=== PATIENT | female | born 1945 | race Caucasian/White ===

== ENCOUNTER → 2020-06-10 12:03 | Outpatient (CLI) | payer MEDICARE, SELFPAY ==
--- NOTE | 2020-06-10 12:09 | XR_ITS ---
PROCEDURE: XR LUMBAR SPINE MIN 4V CLINICAL INDICATION: LOW BACK PAIN After recent fall COMPARISON: CT ABDPELW/O CT ABD PELVIS W/O CONTRAST from 02/14/2016 FINDINGS: There is some straightening of the normal curvature thoracolumbar region. L1 through L5 appear intact. However there is suggestion of a very mild compression fracture inferior endplate of T12. There is no evidence of compression of T12 on the previous CT scan abdomen pelvis 02/14/2016. There is a small vacuum phenomenon of the L5-S1 disc. There is mild anterior and lateral osteophytic spurring at the L2-3 level. IMPRESSION: Findings suggestive of muscle spasm along with mild and acute to semi acute compression fracture of T12 Dictated by: Dr. Krzysztof Cm MD 06/10/2020 12:36 Dr. Krzysztof Cm MD in [place] 06/10/2020 12:36
== END ==
PROVIDERS: PCP Family Medicine; Visit Provider Family Medicine
DX: M54.5 Low back pain (principal)
CPT/HCPCS: 72110

== ENCOUNTER → 2020-07-15 10:15 | Outpatient (CLI) | payer MEDICARE, SELFPAY ==
--- NOTE | 2020-07-15 10:20 | XR_ITS ---
PROCEDURE: XR THORACIC SPINE 2V CLINICAL INDICATION: LOW BACK PAIN Back pain COMPARISON: CR XR LUMBAR SPINE MIN 4V from 06/10/2020 FINDINGS: There is normal alignment. There is mild buckling of the cortex along the inferior aspect of T12 with developing osteophyte formation at that level. Small osteophytes are present at additional levels. No acute fracture or dislocation. No lytic or blastic change. IMPRESSION: Mild wedging with mild buckling of the cortex at T12 similar to the previous exam with mild multilevel degenerative change. No retropulsion apparent. Dictated by: Moo Ferguson MD 07/15/2020 15:52 Moo Ferguson MD in [facility] 07/15/2020 15:52
== END ==
PROVIDERS: PCP Family Medicine; Visit Provider Family Medicine
DX: M54.6 Pain in thoracic spine (principal)
CPT/HCPCS: 72070

== ENCOUNTER 2023-09-01 21:46 | Emergency (ER) | payer MEDICARE, SELFPAY ==
[2023-09-01 21:47] VITALS: BP 125/71; PULSE 71; RESP 18; TEMP 36.4; O2SAT 97; BMI 28.0
--- NOTE | 2023-09-01 22:20 | XR_ITS ---
PROCEDURE INFORMATION: Exam: XR Left Humerus Exam date and time: 09/01/2023 10:39 PM Age: 77 years old Clinical indication: Pain; Upper arm; Left; Additional info: Fall, left upper arm/shoulder pain TECHNIQUE: Imaging protocol: Radiologic exam of the left humerus. Views: 2 or more views. COMPARISON: CR Shoulder L 09/01/2023 10:37 PM FINDINGS: Bones/joints: Comminuted, intra-articular, impacted fractures of humeral head and neck. No dislocation. Soft tissues: Normal. IMPRESSION: Humeral head/neck fracture.
--- NOTE | 2023-09-01 22:20 | XR_ITS ---
PROCEDURE INFORMATION: Exam: XR Left Shoulder Exam date and time: 09/01/2023 10:37 PM Age: 77 years old Clinical indication: Pain; Shoulder; Left; Additional info: Fall left upper arm/shoulder pain TECHNIQUE: Imaging protocol: Radiologic exam of the left shoulder. Views: 2 or more views. COMPARISON: No relevant prior studies available. FINDINGS: Bones/joints: Comminuted, intra-articular, impacted humeral head/neck fracture without dislocation. Soft tissues: Normal. Other findings: Unremarkable visualized thorax. IMPRESSION: Humeral head/neck fracture.
--- NOTE | 2023-09-01 22:24 | XR_ITS ---
PROCEDURE INFORMATION: Exam: XR Lumbosacral Spine Exam date and time: 09/01/2023 10:47 PM Age: 77 years old Clinical indication: Low back pain; Additional info: Fall lower back pain TECHNIQUE: Imaging protocol: Radiologic exam of the lumbosacral spine. Views: 2 or 3 views. COMPARISON: CR XR LUMBAR SPINE MIN 4V 06/10/2020 12:14 PM FINDINGS: Bones/joints: Age-indeterminate T12 and L1 vertebral body height loss although new since last available study. Multilevel degenerative disc and joint space changes most pronounced at L5/S1. Soft tissues: Unremarkable. IMPRESSION: Age-indeterminate compression fractures of T12 and L1 since last available comparison study.
--- NOTE | 2023-09-01 22:25 | XR_ITS ---
PROCEDURE INFORMATION: Exam: XR Pelvis Exam date and time: 09/01/2023 10:45 PM Age: 77 years old Clinical indication: Pelvic pain; Additional info: Fall lower back left side pain TECHNIQUE: Imaging protocol: Radiologic exam of the pelvis. Views: 1 or 2 view. COMPARISON: CR XR LUMBAR SPINE MIN 4V 06/10/2020 12:14 PM FINDINGS: Bones/joints: Sacrum suboptimally visualized secondary to overlying bowel gas and stool. Moderate degenerative changes of both hips and sacroiliac joints. No acute cortical disruption. Soft tissues: Unremarkable. IMPRESSION: No acute radiographic findings in visualized bony pelvis.
[2023-09-01] MEDS: KETOROLAC 30MG/ML VIAL 15 MG IM (22:44)
--- NOTE | 2023-09-01 23:14 | XR_ITS ---
PROCEDURE INFORMATION: Exam: XR Chest Exam date and time: 09/02/2023 1:03 AM Age: 77 years old Clinical indication: Chest wall pain; Additional info: Fall, age >65, back pain, L arm injury TECHNIQUE: Imaging protocol: Radiologic exam of the chest. Views: 1 view. COMPARISON: CT THORACIC SPINE WO CON 09/02/2023 12:28 AM FINDINGS: Lungs: Low lung volumes without definite focal airspace consolidation. Pleural spaces: No pleural effusion. No pneumothorax. Heart/Mediastinum: Unremarkable cardiomediastinal silhouette. Bones/joints: Probably acute fracture in the left humeral head extending into the neck. IMPRESSION: 1. Probably acute fracture in the left humeral head extending into the neck. Correlate with dedicated radiograph or CT. 2. Low lung volumes without definite focal airspace consolidation.
[2023-09-01] MEDS: HYDROMORPHONE 2MG/ML SYRINGE 1 MG IV (23:36)
[2023-09-01] MEDS: ONDANSETRON 4MG/2ML VIAL 4 MG IV (23:36)
--- NOTE | 2023-09-01 23:36 | ED_ITS ---
Discharge Plan Disposition Patient Disposition: Home, Self-Care Condition: Good Prescriptions Prescriptions: New oxycodone 5 mg tablet 5 mg PO Q8H PRN (Reason: pain) Qty: 12 0RF ondansetron 4 mg tablet,disintegrating 4 mg PO Q8H PRN (Reason: nausea and vomiting) 4 Days Qty: 12 0RF sennosides [senna] 8.6 mg tablet 8.6 mg PO DAILY Qty: 30 0RF Referrals Follow up/Referrals: Kami Geller MD [Primary Care Provider] - See instructions Dustin Davey DO [Staff Physician] - See instructions Activity Restrictions/Add. Instructions Additional Instructions/Restrictions: You were evaluated in the emergency department today. Please call Dr. Davey's office in the morning to arrange follow up in clinic. Use your sling for comfort until then. plastics supervisor your prescription for oxycodone and take as needed for severe pain. I am also sending in Zofran and a laxative for you to have in addition to this to treat potential nausea and constipation associated with pain medication use. Do not drive or operate heavy machinery while taking narcotic pain medicine. You may also take Tylenol and ibuprofen at home as needed for pain in addition to this pain medication. Follow-up with your primary care provider as well. Return to the emergency department for new or worsening symptoms. You also had an incidental finding of a left renal mass on CT scan. It is unclear with this is at this time. For this, I recommend follow up with your primary care provider, as they may want to order repeat imaging. Clinical Impressions Clinical Impression: Closed fracture of left proximal humerus, Fall, Closed compression fracture of L1 vertebra, Left kidney mass Instructions Patient Instructions: DI for Vertebral Fracture, DI for Humeral Fracture Discharge ED Provider: Olivia Dunn General Adult HPI General Chief complaint: Fall Stated complaint: fall, right shoulder pain Time Seen by Provider: 09/01/23 23:06 Mode of Arrival: Wheelchair Source of Information: Patient and Relative Limitations: No Limitations Description of Symptoms (Recalled from ER Triage Doc. by RN): Patient was outside at 5 and tripped on step and fell into house with left shoulder and hit left knee. Patient reports severe left shoulder pain with limited mobility and lower back pain. Patient has small abrasion to left knee as well. History of Present Illness HPI narrative: This patient is a 77-year-old female with history of hypertension and hyperlipidemia presenting to the emergency department for evaluation with concern for left shoulder pain after mechanical fall. Patient reports that she was outside around 2114 to smoke when she was stepping back up into her front door to go inside, and she caught her toe on the edge of the step. She fell into her brick house with all of her weight into her left shoulder. She did not hit her head or lose consciousness. She complains of low back pain as well but denies any numbness, tingling, or other issues. She does not take any blood thinners or aspirin. She was well prior to this. Related Data Previous Rx's Medication Instructions Recorded ondansetron 4 mg disintegrating 4 mg PO Q8H PRN nausea and 09/02/23 tablet vomiting 4 days #12 tabs oxycodone 5 mg tablet 5 mg PO Q8H PRN pain #12 tabs 09/02/23 sennosides 8.6 mg tablet (senna) 8.6 mg PO DAILY #30 tabs 09/02/23 Allergies Allergy/AdvReac Type Severity Reaction Status Date / Time morphine [MORPHINE] AdvReac Unknown VOMITTING Verified 09/01/23 23:57 [facility] Disclaimer: The information contained in this section may have been updated after the patient was seen, as this information can be updated by other users. Medical History HTN (hypertension) Surgical History History of cataract extraction Social History Smoking Status: Current every day smoker alcohol intake: never current occupational status: retired Travel in the last 8 weeks: None ROS Obtained: Yes All systems reviewed & no additional complaints except as documented Physical Exam General General appearance: alert and in no apparent distress Head Head exam: atraumatic and normocephalic Eye Eye exam: Present normal appearance, PERRL and EOMI ENT ENT exam: Present normal exam, normal oropharynx, mucous membranes moist and normal external ear exam Neck Neck exam: Present normal inspection, full ROM and trachea midline; Absent tenderness Chest Chest inspection: Present normal inspection and symmetric chest wall rise; Absent tenderness Respiratory Respiratory exam: Present normal lung sounds bilaterally; Absent respiratory distress, wheezes, stridor or accessory muscle use Cardiovascular Cardiovascular exam: Present regular rate and normal rhythm Abdominal Exam Abdominal exam: Present soft; Absent distention, tenderness or guarding Extremities Exam Extremities exam: Present tenderness (Tenderness and deformity of the left proximal humerus. No open wound. All compartments soft. Neurovascularly intact distally.) and normal capillary refill; Absent full ROM or edema Back Exam Back exam: Present full ROM and tenderness (Lumbar spine) Neurological Exam Neurological exam: Present alert, oriented X3, CN II-XII intact and normal gait; Absent motor sensory deficit Psychiatric Psychiatric exam: Present normal affect and normal mood Skin Skin exam: Present warm and dry Medical Decision Making Medical Records Medical records reviewed: Yes I reviewed the patient's medical records. Fabio Inquiry Pt receiving controlled substance: Yes Fabio was queried for this patient: Yes Risks and benefits of using a controlled substance: were discussed with pt by me Vital Signs: 09/01/23 21:47 Temperature 97.6 F Temperature Source Oral Pulse Rate [Left Radial] 71 Respiratory Rate 18 Blood Pressure [Right Arm] 125/71 Blood Pressure Mean [Right Arm] 89 Blood Pressure Source [Right Arm] Automatic Cuff Blood Pressure Position [Right Arm] Sitting 02 Sat by Pulse Oximetry 97 Oxygen Delivery Method Room Air Lab Data Lab results reviewed: Yes I reviewed the patient's lab results. Orders (Tests/Meds): ED MEDICATIONS Discontinued Medications Generic Name Dose Route Start Last Admin Trade Name Freq PRN Reason Stop Dose Admin Acetaminophen 1,000 mg 09/01/23 23:29 09/02/23 00:03 Acetaminophen 1,000mg/100ml Vial IV 09/01/23 23:30 1,000 mg ONCE ONE Administration Hydromorphone HCl 1 mg 09/01/23 23:14 09/01/23 23:36 Hydromorphone 2mg/Ml Syringe IV 09/01/23 23:15 1 mg ONCE ONE Administration Ketorolac Tromethamine 15 mg 09/01/23 22:33 09/01/23 22:45 Ketorolac 30mg/Ml Vial IV 09/01/23 22:34 Not Given ONCE ONE Ketorolac Tromethamine 15 mg 09/01/23 22:36 09/01/23 22:44 Ketorolac 30mg/Ml Vial IM 09/01/23 22:37 15 mg ONCE ONE Administration Ondansetron HCl 4 mg 09/01/23 23:14 09/01/23 23:36 Ondansetron 4mg/2ml Vial IV 09/01/23 23:15 4 mg ONCE ONE Administration Ondansetron HCl 4 mg 09/02/23 01:26 09/02/23 01:29 Ondansetron 4mg/2ml Vial IV 09/02/23 01:27 4 mg ONCE ONE Administration Oxycodone HCl 10 mg 09/02/23 01:13 09/02/23 01:22 Oxycodone 5mg Immediate Release Tablet PO 09/02/23 01:14 10 mg ONCE ONE Administration ORDERS Category Date Time Status CT cervical spine wo con Stat Cat Scan 09/02/23 00:[address] head/brain wo con Stat Cat Scan 09/02/23 00:[address] lumbar spine wo con Stat Cat Scan 09/02/23 00:[address] pelvis wo con Stat Cat Scan 09/02/23 00:[address] thoracic spine wo con Stat Cat Scan 09/02/23 00:22 Completed Humerus XR left [XR humerus LT] Stat Exams 09/01/23 22:20 Completed Lumbar spine XR 2-3 views [XR lumbar spine 2-3V] Stat Exams 09/01/23 22:24 Completed XR chest portable Stat Exams 09/01/23 23:14 Completed XR pelvis 1-2V Stat Exams 09/01/23 22:25 Completed XR shoulder LT min 2V Stat Exams 09/01/23 22:20 Completed Complete Blood Count Auto Diff Stat Lab 09/01/23 22:20 Ordered Comprehensive Metabolic Panel Stat Lab 09/01/23 22:20 Ordered Medical Decision Narrative: In summary, this patient is a 77-year-old female presenting to the Emergency Department for evaluation of left shoulder and low back pain after a mechanical ground-level fall. Differential diagnoses considered include but are not limited to fracture, contusion, strain/sprain, polytrauma. Ruling out the most morbid conditions drove assessment. It should be noted patient's history includes hypertension and hyperlipidemia which may or may not be at goal therapy. This complicates all aspects of care by increasing patient's risk for morbidity. On exam, patient is alert and neurologically intact. She does have deformity to the left proximal humerus with tenderness palpation. All compartments soft, and she is neurovascularly intact distally. Workup included CT head, CT C/T/L- spine, CT bony pelvis, chest x-ray, pelvic x-ray, and x-rays of the injured left upper extremity. Patient was given IV acetaminophen, IV Dilaudid, IV Zofran, and Toradol for symptomatic improvement.. I independently interpreted x-rays and CT scans prior to the radiologist read and noted left humeral neck fracture as well as L1 compression fracture. Patient also has incidental finding of a left renal mass, which she was notified of. I instructed her to follow-up with her primary care provider as a result of this.. Please see their read for final interpretation. On reassessment, patient had continued pain and nausea, for which she was given oxycodone and Zofran. She is neurologically intact and is able to ambulate throughout the room. I considered admission given her polytrauma with L1 fract ure as well as left humerus fracture, however given that these are appropriate for outpatient management and the patient's pain is under control, she is neurologically intact, and she is able to ambulate, I feel that she is appropriate for discharge. I instructed to follow-up very closely with orthopedics. I also notified her of her incidental finding of a left renal mass and instructed to follow-up with her primary care provider. She was given prescriptions for oxycodone, Zofran, and senna as well as instructions for close a patient follow-up. She was given strict return precautions and she was discharged in stable condition after all questions were answered. She lives at home with her son, who will help care for her. Critical Care Critical Care Time Critical Care Time: No
--- NOTE | 2023-09-01 23:56 | PC.NURSE ---
Placed patient's left arm in sling and assisted patient into stretcher. Patient reports significant pain improvement with some nausea. Placed patient on 2LNC.
[2023-09-02] MEDS: ACETAMINOPHEN 1,000MG/100ML VIAL 1000 MG IV (00:03)
--- NOTE | 2023-09-02 00:22 | CT_ITS ---
PROCEDURE INFORMATION: Exam: CT Head Without Contrast Exam date and time: 09/02/2023 12:19 AM Age: 77 years old Clinical indication: Pain; Other: Fall; Additional info: Fall, age >65, back pain, L arm injury TECHNIQUE: Imaging protocol: Computed tomography of the head without contrast. Radiation optimization: All CT scans at this facility use at least one of these dose optimization techniques: automated exposure control; mA and/or kV adjustment per patient size (includes targeted exams where dose is matched to clinical indication); or iterative reconstruction. COMPARISON: No relevant prior studies available. FINDINGS: Brain: No acute intracranial hemorrhage. No mass effect or midline shift. Basal cisterns are patent. Normal miles-white matter differentiation. Coarse calcifications in the right cerebellar hemisphere. Mild chronic white matter changes. Cerebral ventricles: No ventriculomegaly. Paranasal sinuses: Visualized sinuses are unremarkable. Mastoid air cells: Visualized mastoid air cells are clear. Orbital cavities: Bilateral cataract lens replacements. Bones/joints: No acute calvarial fracture. Soft tissues: Unremarkable. IMPRESSION: No acute intracranial findings.
--- NOTE | 2023-09-02 00:22 | CT_ITS ---
PROCEDURE INFORMATION: Exam: CT Cervical Spine Without Contrast Exam date and time: 09/02/2023 12:23 AM Age: 77 years old Clinical indication: Neck pain; Additional info: Fall, age >65, back pain, L arm injury TECHNIQUE: Imaging protocol: Computed tomography of the cervical spine without contrast. Radiation optimization: All CT scans at this facility use at least one of these dose optimization techniques: automated exposure control; mA and/or kV adjustment per patient size (includes targeted exams where dose is matched to clinical indication); or iterative reconstruction. COMPARISON: CT HEAD/BRAIN WO CON 09/02/2023 12:19 AM FINDINGS: Bones/joints: No acute fracture or malalignment. No severe central canal stenosis. Moderate right neural foraminal narrowing at C6-C7. Lungs: Mild emphysematous lung apices. Scarring at the right apex. Thyroid: Multinodular thyroid gland. Soft tissues: Unremarkable. IMPRESSION: No acute osseous abnormality of the cervical spine.
--- NOTE | 2023-09-02 00:22 | CT_ITS ---
PROCEDURE INFORMATION: Exam: CT Pelvis Without Contrast; Skeletal Exam date and time: 09/02/2023 12:36 AM Age: 77 years old Clinical indication: Pelvic pain; Additional info: Fall, age >65, back pain, L arm injury TECHNIQUE: Imaging protocol: Computed tomography of the pelvis without contrast. Exam focused on the skeleton. Radiation optimization: All CT scans at this facility use at least one of these dose optimization techniques: automated exposure control; mA and/or kV adjustment per patient size (includes targeted exams where dose is matched to clinical indication); or iterative reconstruction. COMPARISON: CR XR PELVIS 1-2V 09/01/2023 10:45 PM FINDINGS: Stomach and bowel: Colonic diverticulosis Reproductive: Hysterectomy. Intraperitoneal space: No pelvic ascites. Vasculature: Phleboliths. Atherosclerotic calcifications. Lymph nodes: No lymphadenopathy by size criteria. Bones/joints: Bilateral degenerative changes in the hip joints. No evidence of acute fractures identified in the pelvis. Soft tissues: Tiny fat containing umbilical hernia. IMPRESSION: No evidence of acute fractures identified in the pelvis.
--- NOTE | 2023-09-02 00:22 | CT_ITS ---
PROCEDURE INFORMATION: Exam: CT Lumbar Spine Without Contrast Exam date and time: 09/02/2023 12:32 AM Age: 77 years old Clinical indication: Low back pain; Additional info: Fall, age >65, back pain, L arm injury TECHNIQUE: Imaging protocol: Computed tomography of the lumbar spine without contrast. Radiation optimization: All CT scans at this facility use at least one of these dose optimization techniques: automated exposure control; mA and/or kV adjustment per patient size (includes targeted exams where dose is matched to clinical indication); or iterative reconstruction. COMPARISON: CR Lumbar spine 09/01/2023 10:47 PM FINDINGS: Bones/joints: Acute fracture along the superior endplate of L1 vertebral body more pronounced on the right. No significant vertebral body loss at this time. Multilevel degenerative changes. Spleen: Calcified granulomas in the incompletely visualize spleen. Kidneys and ureters: Few punctate nonobstructing renal calculi. Several relatively high attenuation lesions in the kidneys measuring up to 1.7 cm, probably proteinaceous or hemorrhagic cyst. Additional Incompletely visualized measuring at least 3.1 cm low-attenuation lesion in the left kidney, indeterminate. Stomach and bowel: Colonic diverticulosis. Vasculature: Atherosclerotic calcifications. Soft tissues: Unremarkable. IMPRESSION: 1. Acute fracture along the superior endplate of L1 vertebral body more pronounced on the right. No significant vertebral body loss at this time 2. Incompletely visualized measuring at least 3.1 cm low-attenuation lesion in the left kidney, indeterminate. Correlate with MRI if no contraindications. COMMENTS: Consistent with the [employer]'s Incidental Findings Committee white paper (J Am Jannet Radiol 2018): Any incidental renal lesion less than 1 cm or classified as too small to characterize, or any incidental cystic renal lesion characterized as simple-appearing, is likely benign. No follow-up imaging is recommended for these lesions per consensus recommendations based on imaging criteria.
--- NOTE | 2023-09-02 00:22 | CT_ITS ---
PROCEDURE INFORMATION: Exam: CT Thoracic Spine Without Contrast Exam date and time: 09/02/2023 12:28 AM Age: 77 years old Clinical indication: Pain in thoracic spine; Additional info: Fall, age >65, back pain, L arm injury TECHNIQUE: Imaging protocol: Computed tomography of the thoracic spine without contrast. Radiation optimization: All CT scans at this facility use at least one of these dose optimization techniques: automated exposure control; mA and/or kV adjustment per patient size (includes targeted exams where dose is matched to clinical indication); or iterative reconstruction. COMPARISON: DX XR THORACIC SPINE 2V 07/15/2020 10:35 AM FINDINGS: Bones/joints: L1 fracture as described on CT lumbar spine. Thoracic vertebral body heights are preserved. Soft tissues: Unremarkable. Vasculature: Atherosclerotic calcifications. Lungs: Bibasilar probable atelectasis. Several calcified pulmonary granulomas. IMPRESSION: 1. L1 fracture as described on CT lumbar spine. Thoracic vertebral body heights are preserved. If symptoms persist consider further evaluation with MR if no contraindications. 2. Please refer to separate CT lumbar spine report for findings and recommendation regarding left renal mass.
[2023-09-02] MEDS: OXYCODONE 5MG IMMEDIATE RELEASE TABLET 10 MG PO (01:22)
[2023-09-02] MEDS: ONDANSETRON 4MG/2ML VIAL 4 MG IV (01:29)
--- NOTE | 2023-09-02 02:12 | PC.NURSE ---
Patient ambulated approximately 20 ft with minimal assist. Patient reports dizziness from medication, pain is tolerable.
[2023-09-02 02:20] VITALS: BP 118/69; PULSE 90; RESP 17; TEMP 36.7; O2SAT 97
--- NOTE | 2023-09-02 11:58 | PC.NURSE ---
accessed pt chart to complete ortho paper
== END 2023-09-02 02:23 | disposition home or self-care (01) ==
PROVIDERS: Emergency Provider Emergency Medicine; PCP Family Medicine
DX: S42.202A Unspecified fracture of upper end of left humerus, initial encounter for closed fracture (principal); S32.010A Wedge compression fracture of first lumbar vertebra, initial encounter for closed fracture; S80.212A Abrasion, left knee, initial encounter; I10 Essential (primary) hypertension; E78.5 Hyperlipidemia, unspecified; R11.0 Nausea; F17.200 Nicotine dependence, unspecified, uncomplicated; W01.198A Fall on same level from slipping, tripping and stumbling with subsequent striking against other object, initial encounter
CPT/HCPCS: 70450; 71045; 72100; 72125; 72128; 72131; 72170; 72192; 73030; 73060; 96372; 96374; 96375; 96376; 99285; J0131; J2405

== ENCOUNTER 2023-09-27 10:11 | Outpatient (CLI) | payer MEDICARE, SELFPAY ==
--- NOTE | 2023-09-27 10:16 | XR_ITS ---
FINAL REPORT TECHNIQUE: Left humerus 2 views CLINICAL HISTORY: lt humerus fx COMPARISON: 09/01/2023 FINDINGS: LEFT HUMERUS: The films on this examination are oriented somewhat differently compared to the prior examination. The arm is now externally rotated, and there is a fracture of the humeral head and neck. There is 9 mm of displacement between the fracture fragments. No definite callus formation is seen. IMPRESSION: In external rotation the fracture of the humeral head and neck is once again identified with 9 mm of displacement between the fracture fragments. No definite callus formation is seen. Reviewed, Interpreted and Dictated by Jorge Luis Clemente III, MD Transcribed by Barb Amador Authenticated and [facility]
== END 2023-09-27 23:59 ==
LOC: RAD 10:13
PROVIDERS: PCP Family Medicine; Visit Provider Orthopaedic Surgery
DX: S42.202A Unspecified fracture of upper end of left humerus, initial encounter for closed fracture (principal)
CPT/HCPCS: 73060

== ENCOUNTER 2023-11-01 10:29 | Outpatient (CLI) | payer MEDICARE, SELFPAY | END 2023-11-01 23:59 | LOC: RAD 10:30 | PROVIDERS: PCP Family Medicine; Visit Provider Orthopaedic Surgery | DX: M25.512 Pain in left shoulder (principal); S42.292A Other displaced fracture of upper end of left humerus, initial encounter for closed fracture; W10.8XXA Fall (on) (from) other stairs and steps, initial encounter | CPT/HCPCS: 73060 ==

== ENCOUNTER 2023-12-06 10:45 | Outpatient (CLI) | payer MEDICARE, SELFPAY ==
--- NOTE | 2023-12-06 10:48 | XR_ITS ---
FINAL REPORT CLINICAL HISTORY: lt humerus fx COMPARISON: 11/01/2023 FINDINGS: LEFT HUMERUS: Views of the left humerus reveal mildly impacted fractures of the surgical and anatomic necks of the proximal humerus. Since the prior exam of October 31 there has been progressive callus formation. The alignment of the fracture fragments is stable when compared to the prior exam. No new fracture or dislocation is identified. IMPRESSION: Progressive callus formation and stable alignment of the proximal humeral fracture when compared to the prior exam of October 31. Reviewed, Interpreted and Dictated by Andrew Lucero MD Transcribed by Barb Amador Authenticated and [facility]
== END 2023-12-06 23:59 ==
LOC: RAD 10:46
PROVIDERS: PCP Family Medicine; Visit Provider Orthopaedic Surgery
DX: M79.622 Pain in left upper arm (principal); S42.292A Other displaced fracture of upper end of left humerus, initial encounter for closed fracture
CPT/HCPCS: 73060

== ENCOUNTER 2024-01-30 08:45 | Outpatient (CLI) | payer MEDICARE, SELFPAY ==
--- NOTE | 2024-01-30 08:57 | XR_ITS ---
FINAL REPORT CLINICAL HISTORY: POST MENOPAUSAL,COMPRESSION FX OF SPINE COMPARISON: None FINDINGS: Using L1-4, the bone mineral density of the spine is 0.951 g/cm2, corresponding to T-score of -0.9 which is within normal limits. Using the left hip, the bone mineral density of the femoral neck is 0.693 g/cm2, corresponding to a T-score of -1.4 which is consistent with low bone density. Using the right hip, the bone mineral density of the femoral neck is 0.674 g/cm2, corresponding to a T-score of -1.6 which is consistent with low bone density. FRAX 10 year fracture risk is 4.0% for a hip fracture and 19% for a major osteoporotic fracture. NOTE: T-score: Standard deviation compared with peak bone mass of young adult mean. *Following the recommendations of the International Society of Bone densitometry, classification of hip BMD is based on the lower of two T-scores; total hip or femoral neck. IMPRESSION: Diminished bone mineral density consistent with low bone density. Reviewed, Interpreted and Dictated by Jorge Luis Clemente III, MD Transcribed by Pretty Jordan Authenticated and . [facility]
== END 2024-01-30 23:59 | disposition home or self-care (01) ==
LOC: RAD 08:45
PROVIDERS: PCP Family Medicine; Visit Provider Family Medicine
DX: M80.88XA Other osteoporosis with current pathological fracture, vertebra(e), initial encounter for fracture (principal)
CPT/HCPCS: 77080